=== PATIENT | male | born 1960 | race African-American/Black ===

== ENCOUNTER 2016-10-04 19:04 | Inpatient (IN) | payer OTHER ==
[~2016-10-04] VITALS: Ht 172.7 cm; Wt 130.6 kg
[2016-10-04] MEDS ORDERED: ALBU2.5V13 IH (19:45)
[2016-10-04] MEDS ORDERED: IPRATROPIUM BROMIDE (0.02%) 0.5MG/2.5ML NEB HHN STA (22:06)
[2016-10-04] MEDS ORDERED: ALBUTEROL (0.083%) 2.5MG/3ML NEB HHN STA (22:06)
[2016-10-04] MEDS ORDERED: METHYLPREDNISOLONE SOD SUCC 125 MG/2 ML VIAL IV STA (22:06)
[2016-10-04] MEDS ORDERED: LEVOFLOXACIN 750MG PREMIX 150 ML IV ONE (22:15)
[2016-10-04] MEDS ORDERED: IPRATROPIUM/ALBUTEROL 0.5-3(2.5)MG/3ML NEB ONE (22:29)
[2016-10-04] MEDS ORDERED: ALBUTEROL (0.5%) 2.5MG/0.5ML NEB HHN ONE (22:29)
[2016-10-04 22:32] LABS: HEMOGLOBIN. 12.4 g/dL (14.0-18.0); MEAN CORPUSCULAR HEMOGLOBIN 28.7 pg (28.0-32.0); MEAN CORPUSCULAR HGB CONC 31.8 g/dL (31.0-37.0); MEAN CORPUSCULAR VOLUME 90.3 fL (80.0-94.0); PLATELET 191 x1000/uL (130-400); RED BLOOD CELL COUNT 4.32 mill/uL (4.7-6.1); RED CELL DISTRIBUTION WIDTH 14.4 % (11.6-14.6)
[2016-10-04 22:33] LABS: DIFFERENTIAL COMMENT 1
[2016-10-04 22:35] LABS: CHLORIDE 108 mEq/L (98-107); INDEX HEMOLYSI 1 (1-3); INDEX ICTERIC 1 (1-4); INDEX LIPEMIC 1 (1-3)
[2016-10-04 22:38] LABS: D-DIMER 0.28 mg/L FEU (<0.50); PROTHROMBIN TIME 10.2 sec
[2016-10-04 22:40] LABS: ALANINE AMINOTRANSFERASE 29 IU/L (13-61); ALBUMIN 3.4 g/dL (3.4-5.0); ANION GAP 13; CALCIUM 8.7 mg/dL (8.5-10.1); CARBON DIOXIDE 25 mEq/L (21-32); LIPASE 89 IU/L (73-393); UREA NITROGEN BLOOD 22 mg/dL (7-21)
[2016-10-04 22:42] LABS: eGFR 59 mL/min (>60)
[2016-10-04 22:46] LABS: CREATINE KINASE 264 IU/L (39-308); NT PRO B-TYPE NATRIURETIC PEP 373 pg/mL (5-125); PLATELET ESTIMATE NORMAL; TROPONIN I 0.02 ng/mL (0.00-0.04)
[2016-10-04 22:48] LABS: BG BASE EXCESS -0.7 mmol/L (-2.0-2.0); BG CARBOXYHEMOGLOBIN 1.3 % (0.5-1.5); BG DEOXYHEMOGLOBIN 18.1 % (0.0-5.0); BG FRACTION INSPIRED OXYGEN 21; BG HCO3 ACT 25.1 mmol/L (22.0-26.0); BG OXYGEN SATURATION 81.7 % (92.0-98.5); BG OXYHEMOGLOBIN 80.6 % (94.0-97.0); BG PCO2 45.7 mmHg (35.0-45.0); BG PH 7.357 (7.350-7.450); BG PO2 46.6 mmHg (75.0-100.0); BG SAMPLE SITE RIGHT RADIAL; BG TOTAL HEMOGLOBIN 13.5 g/dL (12.0-18.0); BG VENT MODE ROOM AIR
[2016-10-04 22:51] LABS: THYROID STIMULATING HORMONE 0.31 uIU/mL (0.36-3.74)
[2016-10-05 00:41] LABS: CLARITY URINE CLEAR (CLEAR); COLOR URINE YELLOW (YELLOW); GLUCOSE URINE NEGATIVE (NEGATIVE); KETONES URINE NEGATIVE (NEGATIVE); LEUKOCYTE ESTERASE URINE NEGATIVE (NEGATIVE); NITRITE URINE NEGATIVE (NEGATIVE); OCCULT BLOOD URINE NEGATIVE (NEGATIVE); PROTEIN URINE 1+ (NEGATIVE); SPECIFIC GRAVITY URINE 1.021 (1.005-1.030)
[2016-10-05 00:46] LABS: BACTERIA URINE NONE SEEN; CALCIUM PHOSPHATE CRYSTALS UR NONE SEEN /lpf; RBC URINE 0-2 /hpf (0-2); SQUAMOUS EPITHELIAL CELL URINE NONE SEEN /lpf (RARE/1+); WAXY CASTS URINE NONE SEEN /lpf; WBC URINE NONE SEEN /hpf (0-2); YEAST URINE NONE SEEN
[2016-10-05] MEDS ORDERED: METHYLPREDNISOLONE SOD SUCC 125 MG/2 ML VIAL IV NR (02:30)
[2016-10-05 04:30] VITALS: BP 118/84
[2016-10-05 04:50] VITALS: BP 118/84
[2016-10-05] MEDS ORDERED: ALBU18HF2 IH (06:08)
[2016-10-05] MEDS ORDERED: FLUT1DIS IH (06:08)
[2016-10-05] MEDS ORDERED: ISOS30TA6 PO (06:08)
[2016-10-05] MEDS ORDERED: ASPI-1035 PO (06:08)
[2016-10-05] MEDS ORDERED: AMLO10TA80 PO (06:08)
[2016-10-05] MEDS ORDERED: FURO40TA5 PO (06:08)
[2016-10-05] MEDS ORDERED: P20 PO (06:08)
[2016-10-05] MEDS ORDERED: MONT10TA24 PO (06:08)
[2016-10-05] MEDS ORDERED: ACETAMINOPHEN 325MG TABLET PO PRN ×2 (06:30→11:15)
[2016-10-05 08:00] VITALS: BP 133/77
[2016-10-05] MEDS: IPRATROPIUM/ALBUTEROL 0.5-3(2.5)MG/3ML NEB HHN PRN ×3 (08:03→16:59)
[2016-10-05] MEDS: METHYLPREDNISOLONE SOD SUCC 40 MG/ML VIAL IV SCH ×2 (08:08→21:41)
[2016-10-05] MEDS: ENOXAPARIN 40MG/0.4ML SYR SUBCUT SCH (09:49)
[2016-10-05] MEDS: OMEPRAZOLE 20MG CAPSULE EXTENDED RELEASE PO SCH (09:49)
[2016-10-05] MEDS: LEVOFLOXACIN 500MG TABLET PO SCH (11:59)
[2016-10-05 12:00] VITALS: BP 140/88
[2016-10-05 16:00] VITALS: BP 148/96
[2016-10-05] MEDS ORDERED: IPRATROPIUM/ALBUTEROL 0.5-3(2.5)MG/3ML NEB HHN SCH (18:30)
[2016-10-05] MEDS: HYDROCODONE/ACETAMINOPHEN 5/325MG TABLET PO PRN (19:47)
[2016-10-05] MEDS: IPRATROPIUM/ALBUTEROL 0.5-3(2.5)MG/3ML NEB HHN SCH ×2 (20:46→23:50)
[2016-10-06] MEDS: IPRATROPIUM/ALBUTEROL 0.5-3(2.5)MG/3ML NEB HHN SCH ×5 (03:52→20:19)
[2016-10-06 04:12] VITALS: BP 117/96
[2016-10-06 06:03] LABS: HEMATOCRIT. 39.6 % (42.0-52.0); HEMOGLOBIN. 12.4 g/dL (14.0-18.0); MEAN CORPUSCULAR HEMOGLOBIN 28.4 pg (28.0-32.0); MEAN CORPUSCULAR HGB CONC 31.4 g/dL (31.0-37.0); MEAN CORPUSCULAR VOLUME 90.5 fL (80.0-94.0); MEAN PLATELET VOLUME 10.7 fl (7.4-10.4); PLATELET 209 x1000/uL (130-400); RED BLOOD CELL COUNT 4.37 mill/uL (4.7-6.1); RED CELL DISTRIBUTION WIDTH 14.4 % (11.6-14.6); WHITE BLOOD COUNT 19.5 x1000/uL (4.5-11.0)
[2016-10-06 06:13] LABS: DIFFERENTIAL COMMENT 1
[2016-10-06 06:46] LABS: ANION GAP 12; CALCIUM 8.9 mg/dL (8.5-10.1); CARBON DIOXIDE 28 mEq/L (21-32); CHLORIDE 102 mEq/L (98-107); INDEX HEMOLYSI 2 (1-3); INDEX ICTERIC 1 (1-4); INDEX LIPEMIC 1 (1-3); UREA NITROGEN BLOOD 20 mg/dL (7-21); eGFR > 60 mL/min (>60)
[2016-10-06 08:00] VITALS: BP 123/84
[2016-10-06] MEDS: OMEPRAZOLE 20MG CAPSULE EXTENDED RELEASE PO SCH (08:29)
[2016-10-06] MEDS: METHYLPREDNISOLONE SOD SUCC 40 MG/ML VIAL IV SCH ×2 (08:30→20:32)
[2016-10-06] MEDS: ENOXAPARIN 40MG/0.4ML SYR SUBCUT SCH (08:30)
[2016-10-06 09:02] LABS: BG BASE EXCESS -0.3 mmol/L (-2.0-2.0); BG CARBOXYHEMOGLOBIN 0.8 % (0.5-1.5); BG DEOXYHEMOGLOBIN 4.5 % (0.0-5.0); BG FRACTION INSPIRED OXYGEN 28; BG HCO3 ACT 24.9 mmol/L (22.0-26.0); BG METHEMOGLOBIN 0.3 % (0.0-1.5); BG OXYGEN SATURATION 95.4 % (92.0-98.5); BG OXYHEMOGLOBIN 94.4 % (94.0-97.0); BG PCO2 43.1 mmHg (35.0-45.0); BG PO2 75.7 mmHg (75.0-100.0); BG SAMPLE SITE RIGHT RADIAL; BG TOTAL HEMOGLOBIN 13.7 g/dL (12.0-18.0); BG VENT MODE NASAL CANNULA
[2016-10-06 11:15] LABS: PLATELET ESTIMATE NORMAL
[2016-10-06] MEDS: LEVOFLOXACIN 500MG TABLET PO SCH (11:31)
[2016-10-06] MEDS: HYDROCODONE/ACETAMINOPHEN 5/325MG TABLET PO PRN (11:32)
[2016-10-06 11:55] VITALS: BP 116/88
[2016-10-06 15:38] VITALS: BP 105/87
[2016-10-06 20:00] VITALS: BP 129/85
[2016-10-06] MEDS: ENOXAPARIN 30MG/0.3ML SYR SUBCUT SCH (20:33)
[2016-10-07] VITALS: BP 118/83
[2016-10-07] MEDS: IPRATROPIUM/ALBUTEROL 0.5-3(2.5)MG/3ML NEB HHN SCH ×4 (00:23→11:50)
[2016-10-07 04:00] VITALS: BP 136/83
[2016-10-07] MEDS: OMEPRAZOLE 20MG CAPSULE EXTENDED RELEASE PO SCH (06:00)
[2016-10-07 08:00] VITALS: BP 141/87
[2016-10-07 08:27] LABS: DIFFERENTIAL COMMENT 1; HEMATOCRIT. 40.7 % (42.0-52.0); HEMOGLOBIN. 12.7 g/dL (14.0-18.0); MEAN CORPUSCULAR HEMOGLOBIN 28.7 pg (28.0-32.0); MEAN CORPUSCULAR HGB CONC 31.3 g/dL (31.0-37.0); MEAN CORPUSCULAR VOLUME 91.6 fL (80.0-94.0); MEAN PLATELET VOLUME 9.6 fl (7.4-10.4); PLATELET 191 x1000/uL (130-400); RED BLOOD CELL COUNT 4.44 mill/uL (4.7-6.1); RED CELL DISTRIBUTION WIDTH 14.3 % (11.6-14.6); WHITE BLOOD COUNT 15.8 x1000/uL (4.5-11.0)
[2016-10-07] MEDS: ENOXAPARIN 30MG/0.3ML SYR SUBCUT SCH (09:40)
[2016-10-07] MEDS: METHYLPREDNISOLONE SOD SUCC 40 MG/ML VIAL IV SCH (09:40)
[2016-10-07 12:00] VITALS: BP 148/97
[2016-10-07 12:58] LABS: PLATELET ESTIMATE NORMAL
== END 2016-10-07 14:15 | disposition home or self-care (01) | DRG 140 ==
LOC: ER 21:03 → 6WST 10-05 00:22 → OBSVTOIN 10-05 00:22 → INTOOBSV 10-05 00:22 → 6WST 10-05 17:27
PROVIDERS: ADMIT Internal Medicine; ATTEND Internal Medicine
DX: J44.1 Chronic obstructive pulmonary disease with (acute) exacerbation (principal); I10 Essential (primary) hypertension; N28.9 Disorder of kidney and ureter, unspecified; D72.829 Elevated white blood cell count, unspecified; R09.02 Hypoxemia; R60.0 Localized edema
CPT/HCPCS: 36415; 36600; 71010; 71250; 73560; 80048; 80053; 81001; 82375; 82550; 82805; 82962; 83605; 83690; 83880; 84443; 84484; 85025; 85379; 85610; 87040; 93005; 93306; 93970; 96365; 96366; 96375; 99285; J1650; J1956; J2920; J2930; J7040; J7611; J7620

== ENCOUNTER 2018-04-30 07:02 | Inpatient (IN) | payer OTHER ==
[~2018-04-30] VITALS: Ht 170.2 cm; Wt 130.6 kg
[~2018-04-30 07:02] MED LIST: ALBU18HF2 IH; ALBU2.5V13 IH; AMLO10TA80 PO; ASPI-1159 PO; FLUT1DIS IH; FURO40TA5 PO; ISOS30TA6 PO; MONT10TA24 PO; P20 PO
[2018-04-30 08:44] LABS: BASOPHILS % 0.3 % (0.0-2.0); EOSINOPHILS % 1.6 % (0.0-5.0); HEMATOCRIT. 41.1 % (42.0-52.0); HEMOGLOBIN. 13.2 g/dL (14.0-18.0); LYMPHOCYTES % 14.4 % (20.0-50.0); MEAN CORPUSCULAR VOLUME 90.2 fL (80.0-94.0); MEAN PLATELET VOLUME 10.6 fl (7.4-10.4); MONOCYTES % 8.3 % (2.0-8.0); NEUTROPHILS % 75.4 % (40.0-76.0); PLATELET 157 x1000/uL (130-400); RED BLOOD CELL COUNT 4.56 mill/uL (4.7-6.1); RED CELL DISTRIBUTION WIDTH 14.7 % (11.6-14.6)
[2018-04-30 08:55] LABS: CHLORIDE 108 mEq/L (98-107)
[2018-04-30] MEDS ORDERED: NA PHOS,M-B/NA PHOS,DI-BA ENEMA 118ML PR PRN (11:15)
[2018-04-30] MEDS ORDERED: ACETAMINOPHEN 650MG SUPP PR PRN (11:15)
[2018-04-30] MEDS ORDERED: IPRATROPIUM/ALBUTEROL 0.5-3(2.5)MG/3ML NEB INH PRN (11:15)
[2018-04-30] MEDS ORDERED: ACETAMINOPHEN 325MG TABLET PO PRN (11:15)
[2018-04-30] MEDS ORDERED: DIPHENHYDRAMINE 50MG/ML VIAL IV PRN (11:15)
[2018-04-30] MEDS ORDERED: AMLODIPINE 5MG TABLET PO SCH (11:15)
[2018-04-30] MEDS ORDERED: ONDANSETRON HCL 4MG/2ML INJ IV PRN (11:15)
[2018-04-30] MEDS ORDERED: MAGNESIUM/ALUMINUM HYDROXIDE/SIMETHICONE 30ML UDC PO PRN (11:15)
[2018-04-30 12:13] LABS: PROTHROMBIN TIME 10.3 sec (9.1-11.1)
[2018-04-30 15:29] LABS: BG BASE EXCESS 0.7 mmol/L (-2.0-2.0); BG CARBOXYHEMOGLOBIN 2.6 % (0.5-1.5); BG DEOXYHEMOGLOBIN 5.1 % (0.0-5.0); BG FRACTION INSPIRED OXYGEN 21; BG METHEMOGLOBIN 0.2 % (0.0-1.5); BG OXYGEN SATURATION 94.8 % (92.0-98.5); BG OXYHEMOGLOBIN 92.1 % (94.0-97.0); BG PCO2 39.3 mmHg (35.0-45.0); BG PH 7.422 (7.350-7.450); BG PO2 68.6 mmHg (75.0-100.0); BG SAMPLE SITE LEFT RADIAL; BG TOTAL HEMOGLOBIN 14.1 g/dL (12.0-18.0); BG VENT MODE ROOM AIR
[2018-04-30 16:00] VITALS: BP 158/89
[2018-04-30] MEDS: NICOTINE 14MG PATCH TD SCH (17:15)
[2018-04-30] MEDS: ASPIRIN 81MG EC TABLET PO SCH (17:15)
[2018-04-30] MEDS: HYDROCODONE/ACETAMINOPHEN 5/325MG TABLET PO PRN (17:15)
[2018-04-30 17:25] VITALS: BP 158/89
[2018-04-30 19:40] VITALS: BP 142/92
[2018-04-30] MEDS: PREDNISONE 20MG TABLET PO SCH (20:45)
[2018-04-30] MEDS ORDERED: PREDNISONE 20MG TABLET PO SCH (20:45)
[2018-05-01 00:49] VITALS: BP 110/74
[2018-05-01] MEDS: IPRATROPIUM/ALBUTEROL 0.5-3(2.5)MG/3ML NEB HHN SCH ×6 (01:15→22:09)
[2018-05-01 01:32] LABS: CREATINE KINASE 130 IU/L (39-308); CREATINE KINASE MB FRACTION 1.3 ng/mL (0.5-3.6)
[2018-05-01 04:45] VITALS: BP 121/93
[2018-05-01 07:35] LABS: HEMATOCRIT. 43.9 % (42.0-52.0); HEMOGLOBIN. 13.8 g/dL (14.0-18.0); MEAN CORPUSCULAR HEMOGLOBIN 28.6 pg (28.0-32.0); MEAN CORPUSCULAR VOLUME 90.8 fL (80.0-94.0); MEAN PLATELET VOLUME 10.7 fl (7.4-10.4); PLATELET 145 x1000/uL (130-400); RED BLOOD CELL COUNT 4.83 mill/uL (4.7-6.1); RED CELL DISTRIBUTION WIDTH 14.6 % (11.6-14.6)
[2018-05-01 07:36] LABS: CHLORIDE 109 mEq/L (98-107)
[2018-05-01 07:58] LABS: HDL CHOLESTEROL 61 mg/dL (40-59); LDL CHOLESTEROL 66 mg/dL (5-100); T4 FREE 1.01 ng/dL (0.76-1.46)
[2018-05-01 08:00] VITALS: BP 153/79
[2018-05-01] MEDS: NICOTINE 14MG PATCH TD SCH (08:32)
[2018-05-01] MEDS: ASPIRIN 81MG EC TABLET PO SCH (08:33)
[2018-05-01] MEDS: HYDROCODONE/ACETAMINOPHEN 5/325MG TABLET PO PRN ×2 (08:34→20:07)
[2018-05-01] MEDS ORDERED: AMLODIPINE 5MG TABLET PO SCH (09:00)
[2018-05-01] MEDS ORDERED: ASPIRIN 81MG EC TABLET PO SCH (09:00)
[2018-05-01 11:35] VITALS: BP_SYST 125; BP_SYST 137; BP_SYST 152; BP_DIAS 0; BP_DIAS 73; BP_DIAS 87
[2018-05-01 12:34] LABS: PLATELET ESTIMATE NORMAL
[2018-05-01] MEDS ORDERED: FUROSEMIDE 40MG/4ML VIAL IVP SCH (12:45)
[2018-05-01] MEDS ORDERED: ACETYLCYSTEINE 200MG/ML 20% VIAL 4ML INH SCH (14:15)
[2018-05-01] MEDS ORDERED: SODIUM CHLORIDE 0.45% 1,000 ML IV SCH (14:30)
[2018-05-01 16:00] VITALS: BP 146/81
[2018-05-01 17:19] LABS: CLARITY URINE CLEAR (CLEAR); COLOR URINE YELLOW (YELLOW); KETONES URINE NEGATIVE (NEGATIVE); LEUKOCYTE ESTERASE URINE NEGATIVE (NEGATIVE); NITRITE URINE NEGATIVE (NEGATIVE); OCCULT BLOOD URINE NEGATIVE (NEGATIVE); PH URINE 5.5 (4.5-8.0); PROTEIN URINE 1+ (NEGATIVE); SPECIFIC GRAVITY URINE 1.007 (1.005-1.030)
[2018-05-01 17:54] LABS: *AMPHETAMINES SCREEN URINE NEGATIVE (NEGATIVE); *BARBITURATES SCREEN URINE NEGATIVE (NEGATIVE); *BENZODIAZEPINES SCREEN URINE NEGATIVE (NEGATIVE); *COCAINE SCREEN URINE PRESUMTIVE POSITIVE (NEGATIVE); CANNABINOID URINE SCREEN NEGATIVE (NEGATIVE); METHADONE URINE SCREEN NEGATIVE (NEGATIVE); OPIATES URINE SCREEN NEGATIVE (NEGATIVE); PHENCYCLIDINE URINE SCREEN NEGATIVE (NEGATIVE)
[2018-05-01 18:04] LABS: *AMPHETAMINES SCREEN URINE NEGATIVE (NEGATIVE); *BARBITURATES SCREEN URINE NEGATIVE (NEGATIVE); *BENZODIAZEPINES SCREEN URINE NEGATIVE (NEGATIVE); *COCAINE SCREEN URINE PRESUMTIVE POSITIVE (NEGATIVE); CANNABINOID URINE SCREEN NEGATIVE (NEGATIVE); METHADONE URINE SCREEN NEGATIVE (NEGATIVE); OPIATES URINE SCREEN NEGATIVE (NEGATIVE); PHENCYCLIDINE URINE SCREEN NEGATIVE (NEGATIVE)
[2018-05-01 20:00] VITALS: BP 143/79
[2018-05-01] MEDS: PREDNISONE 20MG TABLET PO SCH (20:06)
[2018-05-02] VITALS: BP 122/65
[2018-05-02 00:03] VITALS: BP_SYST 132; BP_SYST 141; BP_DIAS 84; BP_DIAS 89
[2018-05-02 01:05] VITALS: BP 122/65
[2018-05-02] MEDS: HYDROCODONE/ACETAMINOPHEN 5/325MG TABLET PO PRN (02:28)
== END 2018-05-02 03:37 | disposition short-term general hospital (02) | DRG 194 ==
LOC: ER 07:24 → 5WST 09:20 → EDBEDREQTM 09:23 → EDBEDREQ 09:23 → ENRESERV 14:25 → CANRESERV 15:17 → ENRESERV 15:17
PROVIDERS: ADMIT Internal Medicine; ATTEND Internal Medicine
DX: I50.43 Acute on chronic combined systolic (congestive) and diastolic (congestive) heart failure (principal); N17.9 Acute kidney failure, unspecified; I24.9 Acute ischemic heart disease, unspecified; I27.20 Pulmonary hypertension, unspecified; J44.1 Chronic obstructive pulmonary disease with (acute) exacerbation; I11.0 Hypertensive heart disease with heart failure; R00.1 Bradycardia, unspecified; R20.2 Paresthesia of skin; E78.5 Hyperlipidemia, unspecified; D64.9 Anemia, unspecified; E66.09 Other obesity due to excess calories; F17.210 Nicotine dependence, cigarettes, uncomplicated; I87.8 Other specified disorders of veins; E80.6 Other disorders of bilirubin metabolism; Z68.39 Body mass index [BMI] 39.0-39.9, adult; Z79.82 Long term (current) use of aspirin; Z79.899 Other long term (current) drug therapy; Z71.6 Tobacco abuse counseling
CPT/HCPCS: 36415; 36600; 71045; 76700; 80061; 80305; 82375; 82550; 82553; 82805; 83735; 83880; 84439; 84443; 84484; 93005; 93923; 93970; 93971; 94618; 94640; 99285; 99406; J1940; J7512; J7620

== ENCOUNTER 2019-06-08 10:26 | Inpatient (IN) | payer MEDICAID, OTHER ==
[~2019-06-08] VITALS: Ht 172.7 cm; Wt 174.2 kg
[~2019-06-08 10:26] MED LIST changes: -ASPI-1159 PO; +ASPI-1393 PO
[2019-06-08] MEDS ORDERED: IPRATROPIUM BROMIDE (0.02%) 0.5MG/2.5ML NEB HHN STA (10:43)
[2019-06-08] MEDS ORDERED: METHYLPREDNISOLONE SOD SUCC 125 MG/2 ML VIAL IV STA (10:43)
[2019-06-08] MEDS ORDERED: MAGNESIUM 2 G PREMIX 50 ML IV ONE (10:45)
[2019-06-08] MEDS ORDERED: NITROGLYCERIN OINT 1GM/INCH UDPKT TD ONE (10:45)
[2019-06-08] MEDS: ALBUTEROL (0.083%) 2.5MG/3ML NEB HHN SCH ×3 (11:05→12:02)
[2019-06-08 11:59] LABS: BASOPHILS % 0.3 % (0.0-2.0); EOSINOPHILS % 0.6 % (0.0-5.0); HEMATOCRIT. 38.8 % (42.0-52.0); HEMOGLOBIN. 12.2 g/dL (14.0-18.0); MEAN PLATELET VOLUME 10.2 fl (7.4-10.4); MONOCYTES % 6.2 % (2.0-8.0); NEUTROPHILS % 82.9 % (40.0-76.0); PLATELET 184 x1000/uL (130-400); RED BLOOD CELL COUNT 4.22 mill/uL (4.7-6.1); RED CELL DISTRIBUTION WIDTH 15.9 % (11.6-14.6)
[2019-06-08 12:05] LABS: CHLORIDE 111 mEq/L (98-107)
[2019-06-08 12:06] LABS: PROTHROMBIN TIME 9.8 sec (9.6-11.0)
[2019-06-08 12:32] LABS: BG BASE EXCESS -3.6 mmol/L (-2.0-2.0); BG FRACTION INSPIRED OXYGEN 28; BG HCO3 ACT 24.3 mmol/L (22.0-26.0); BG METHEMOGLOBIN 0.2 % (0.0-1.5); BG OXYGEN SATURATION 92.6 % (92.0-98.5); BG OXYHEMOGLOBIN 87.8 % (94.0-97.0); BG PCO2 56.1 mmHg (35.0-45.0); BG PH 7.255 (7.350-7.450); BG PO2 70.9 mmHg (75.0-100.0); BG SAMPLE SITE RIGHT RADIAL; BG TOTAL HEMOGLOBIN 13.5 g/dL (12.0-18.0); BG VENT MODE ROOM AIR
[2019-06-08] MEDS ORDERED: SODIUM CHLORIDE 0.9% 1,000 ML IV ONE (14:18)
[2019-06-08] MEDS ORDERED: PIPERACILLIN/TAZ 3.375G PREMIX 50 ML IV ONE (14:30)
[2019-06-08] MEDS ORDERED: ONDANSETRON HCL 4MG/2ML INJ IV PRN (16:45)
[2019-06-08] MEDS ORDERED: ACETAMINOPHEN 650MG SUPP PR PRN (16:45)
[2019-06-08] MEDS ORDERED: ACETAMINOPHEN 650MG/20.3ML UDC GT PRN (16:45)
[2019-06-08] MEDS ORDERED: MAGNESIUM/ALUMINUM HYDROXIDE/SIMETHICONE 30ML UDC PO PRN (16:45)
[2019-06-08] MEDS ORDERED: HYDROCODONE/ACETAMINOPHEN 5/325MG TABLET PO PRN (16:45)
[2019-06-08] MEDS ORDERED: GUAIFENESIN 200MG/10ML SUGAR FREE UDC PO PRN (16:45)
[2019-06-08] MEDS ORDERED: DOCUSATE SODIUM 100MG CAPSULE PO PRN (16:45)
[2019-06-08] MEDS ORDERED: DIPHENHYDRAMINE 50MG/ML VIAL IV PRN (16:45)
[2019-06-08] MEDS ORDERED: ACETAMINOPHEN 325MG TABLET PO PRN (16:45)
[2019-06-08] MEDS ORDERED: NA PHOS,M-B/NA PHOS,DI-BA ENEMA 118ML PR PRN (16:45)
[2019-06-08] MEDS ORDERED: IPRATROPIUM/ALBUTEROL 0.5-3(2.5)MG/3ML NEB HHN PRN (16:45)
[2019-06-08 21:49] VITALS: BP 121/76
[2019-06-08] MEDS: SODIUM CHLORIDE 0.9% INJ 3ML FLUSH IVF SCH (22:38)
[2019-06-08] MEDS: METHYLPREDNISOLONE SOD SUCC 125 MG/2 ML VIAL IV SCH (22:38)
[2019-06-09] VITALS (13 sets, daily range): BP systolic 95–180; BP diastolic 32–96
[2019-06-09 01:14] LABS: CREATINE KINASE 218 IU/L (39-308)
[2019-06-09 01:15] LABS: CREATINE KINASE MB FRACTION 2.4 ng/mL (0.5-3.6)
[2019-06-09] MEDS: IPRATROPIUM/ALBUTEROL 0.5-3(2.5)MG/3ML NEB HHN SCH ×4 (01:43→21:25)
[2019-06-09] MEDS: METHYLPREDNISOLONE SOD SUCC 125 MG/2 ML VIAL IV SCH ×4 (04:57→21:27)
[2019-06-09] MEDS: SODIUM CHLORIDE 0.9% INJ 3ML FLUSH IVF SCH ×3 (06:32→21:32)
[2019-06-09 06:57] LABS: HEMATOCRIT. 40.9 % (42.0-52.0); HEMOGLOBIN. 12.6 g/dL (14.0-18.0); MEAN CORPUSCULAR HEMOGLOBIN 29.1 pg (28.0-32.0); MEAN CORPUSCULAR VOLUME 94.1 fL (80.0-94.0); MEAN PLATELET VOLUME 10.2 fl (7.4-10.4); PLATELET 158 x1000/uL (130-400); RED BLOOD CELL COUNT 4.34 mill/uL (4.7-6.1)
[2019-06-09 07:16] LABS: CHLORIDE 110 mEq/L (98-107)
[2019-06-09 07:23] LABS: LDL CHOLESTEROL 51 mg/dL (5-100)
[2019-06-09 07:24] LABS: CREATINE KINASE 235 IU/L (39-308); HDL CHOLESTEROL 73 mg/dL (40-59)
[2019-06-09 07:27] LABS: CREATINE KINASE MB FRACTION 2.3 ng/mL (0.5-3.6)
[2019-06-09] MEDS: ENOXAPARIN 40MG/0.4ML SYR SUBCUT SCH ×2 (09:52→21:27)
[2019-06-09 11:09] LABS: CLARITY URINE CLEAR (CLEAR); COLOR URINE YELLOW (YELLOW); KETONES URINE TRACE (NEGATIVE); LEUKOCYTE ESTERASE URINE NEGATIVE (NEGATIVE); NITRITE URINE NEGATIVE (NEGATIVE); OCCULT BLOOD URINE NEGATIVE (NEGATIVE); PROTEIN URINE 2+ (NEGATIVE); SPECIFIC GRAVITY URINE 1.019 (1.005-1.030); UROBILINOGEN URINE 0.2 E.U./dL (0.2-1.0)
[2019-06-09 11:26] LABS: CANNABINOID URINE SCREEN NEGATIVE (NEGATIVE)
[2019-06-09 11:27] LABS: *BARBITURATES SCREEN URINE NEGATIVE (NEGATIVE)
[2019-06-09 11:28] LABS: *AMPHETAMINES SCREEN URINE NEGATIVE (NEGATIVE); *BENZODIAZEPINES SCREEN URINE NEGATIVE (NEGATIVE); *COCAINE SCREEN URINE PRESUMTIVE POSITIVE (NEGATIVE); METHADONE URINE SCREEN NEGATIVE (NEGATIVE); OPIATES URINE SCREEN PRESUMTIVE POSITIVE (NEGATIVE); PHENCYCLIDINE URINE SCREEN NEGATIVE (NEGATIVE)
[2019-06-09 20:49] LABS: PLATELET ESTIMATE NORMAL
[2019-06-09] MEDS: CLONIDINE 0.1MG TABLET PO PRN (21:28)
[2019-06-10] VITALS (10 sets, daily range): BP systolic 124–163; BP diastolic 60–106
[2019-06-10] MEDS: IPRATROPIUM/ALBUTEROL 0.5-3(2.5)MG/3ML NEB HHN SCH ×4 (02:25→21:34)
[2019-06-10] MEDS: METHYLPREDNISOLONE SOD SUCC 125 MG/2 ML VIAL IV SCH ×3 (04:00→15:36)
[2019-06-10] MEDS: SODIUM CHLORIDE 0.9% INJ 3ML FLUSH IVF SCH ×3 (05:10→22:56)
[2019-06-10] MEDS: ENOXAPARIN 40MG/0.4ML SYR SUBCUT SCH ×2 (08:11→22:56)
[2019-06-10 16:27] LABS: HEMATOCRIT. 39.5 % (42.0-52.0); HEMOGLOBIN. 12.3 g/dL (14.0-18.0); MEAN CORPUSCULAR HEMOGLOBIN 28.9 pg (28.0-32.0); MEAN CORPUSCULAR VOLUME 92.5 fL (80.0-94.0); PLATELET 149 x1000/uL (130-400); RED BLOOD CELL COUNT 4.26 mill/uL (4.7-6.1)
[2019-06-10 16:31] LABS: CHLORIDE 106 mEq/L (98-107)
[2019-06-10 16:43] LABS: PLATELET ESTIMATE NORMAL
[2019-06-10] MEDS: FUROSEMIDE 40MG/4ML VIAL IVP SCH (17:56)
[2019-06-10] MEDS: METHYLPREDNISOLONE SOD SUCC 40 MG/ML VIAL IV SCH (22:56)
[2019-06-11] VITALS (10 sets, daily range): BP systolic 140–162; BP diastolic 78–107
[2019-06-11] MEDS: CLONIDINE 0.1MG TABLET PO PRN (01:31)
[2019-06-11] MEDS: IPRATROPIUM/ALBUTEROL 0.5-3(2.5)MG/3ML NEB HHN SCH ×4 (03:14→21:01)
[2019-06-11] MEDS: SODIUM CHLORIDE 0.9% INJ 3ML FLUSH IVF SCH ×3 (07:07→22:49)
[2019-06-11] MEDS: METHYLPREDNISOLONE SOD SUCC 40 MG/ML VIAL IV SCH ×2 (07:07→14:00)
[2019-06-11] MEDS: FUROSEMIDE 40MG/4ML VIAL IVP SCH (09:00)
[2019-06-11 10:39] LABS: BG BASE EXCESS 1.6 mmol/L (-2.0-2.0); BG BILEVEL POS AIRWAY PRESSURE 15/5; BG CARBOXYHEMOGLOBIN 0.7 % (0.5-1.5); BG DEOXYHEMOGLOBIN 2.6 % (0.0-5.0); BG FRACTION INSPIRED OXYGEN 45; BG HCO3 ACT 29.9 mmol/L (22.0-26.0); BG METHEMOGLOBIN 0.3 % (0.0-1.5); BG OXYGEN SATURATION 97.4 % (92.0-98.5); BG OXYHEMOGLOBIN 96.4 % (94.0-97.0); BG PCO2 64.4 mmHg (35.0-45.0); BG PH 7.284 (7.350-7.450); BG PO2 103.6 mmHg (75.0-100.0); BG SAMPLE SITE RIGHT RADIAL; BG TOTAL HEMOGLOBIN 13.5 g/dL (12.0-18.0); BG VENT MODE MASK - BIPAP
[2019-06-11] MEDS: ENOXAPARIN 40MG/0.4ML SYR SUBCUT SCH ×2 (11:56→22:49)
[2019-06-11 14:04] LABS: CHLORIDE 106 mEq/L (98-107)
[2019-06-11 14:47] LABS: HEMATOCRIT. 38.4 % (42.0-52.0); HEMOGLOBIN. 12.2 g/dL (14.0-18.0); MEAN CORPUSCULAR HEMOGLOBIN 29.4 pg (28.0-32.0); MEAN CORPUSCULAR VOLUME 92.5 fL (80.0-94.0); MEAN PLATELET VOLUME 10.2 fl (7.4-10.4); PLATELET 157 x1000/uL (130-400); RED BLOOD CELL COUNT 4.16 mill/uL (4.7-6.1); RED CELL DISTRIBUTION WIDTH 16.1 % (11.6-14.6)
[2019-06-11 20:43] LABS: PLATELET ESTIMATE NORMAL
[2019-06-12] VITALS (15 sets, daily range): BP systolic 116–163; BP diastolic 69–113
[2019-06-12] MEDS: METHYLPREDNISOLONE SOD SUCC 40 MG/ML VIAL IV SCH ×4 (00:11→23:55)
[2019-06-12] MEDS: IPRATROPIUM/ALBUTEROL 0.5-3(2.5)MG/3ML NEB HHN SCH ×4 (01:55→20:38)
[2019-06-12] MEDS: SODIUM CHLORIDE 0.9% INJ 3ML FLUSH IVF SCH ×3 (06:54→23:58)
[2019-06-12] MEDS ORDERED: LIDOCAINE HCL 1% 20ML VIAL (Pyxis) INJ ONE (08:45)
[2019-06-12] MEDS: FUROSEMIDE 40MG/4ML VIAL IVP SCH (10:45)
[2019-06-12] MEDS: ENOXAPARIN 40MG/0.4ML SYR SUBCUT SCH ×2 (10:45→23:55)
[2019-06-13] VITALS (10 sets, daily range): BP systolic 116–170; BP diastolic 72–96
[2019-06-13] MEDS: IPRATROPIUM/ALBUTEROL 0.5-3(2.5)MG/3ML NEB HHN SCH ×3 (02:14→12:49)
[2019-06-13] MEDS: METHYLPREDNISOLONE SOD SUCC 40 MG/ML VIAL IV SCH (07:08)
[2019-06-13] MEDS: SODIUM CHLORIDE 0.9% INJ 3ML FLUSH IVF SCH (07:10)
[2019-06-13 08:02] LABS: HEMATOCRIT 40.5 % (42.0-52.0); HEMOGLOBIN 12.8 g/dL (14.0-18.0); MEAN CORPUSCULAR HEMOGLOBIN 29.1 pg (28.0-32.0); PLATELET 151 x1000/uL (130-400); RED CELL DISTRIBUTION WIDTH 15.7 % (11.6-14.6)
[2019-06-13 08:37] LABS: CHLORIDE 104 mEq/L (98-107)
[2019-06-13] MEDS ORDERED: P20 PO (08:44)
[2019-06-13] MEDS ORDERED: ALBU18HF2 IH (08:44)
[2019-06-13] MEDS ORDERED: ISOS30TA6 PO (08:44)
[2019-06-13] MEDS ORDERED: ASPI-1393 PO (08:44)
[2019-06-13] MEDS ORDERED: MONT10TA24 PO (08:44)
[2019-06-13] MEDS ORDERED: ALBU2.5V13 IH (08:44)
[2019-06-13] MEDS ORDERED: FURO40TA5 PO (08:44)
[2019-06-13] MEDS ORDERED: AMLO10TA80 PO (08:44)
[2019-06-13] MEDS: ENOXAPARIN 40MG/0.4ML SYR SUBCUT SCH (09:02)
[2019-06-13] MEDS: FUROSEMIDE 40MG/4ML VIAL IVP SCH (09:59)
[2019-06-13] MEDS ORDERED: SODIUM POLYSTYRENE SULFONATE 15 G/60 ML BOT PO NR (11:00)
== END 2019-06-13 15:47 | disposition home or self-care (01) | DRG 816 ==
LOC: ER 10:33 → 3WST 13:27 → EDBEDREQSVC 13:29 → EDBEDREQ 13:29 → ENRESERV 20:16
PROVIDERS: ADMIT Family Medicine; ATTEND Family Medicine
PROC: 5A09357 Assistance with Respiratory Ventilation, Less than 24 Consecutive Hours, Continuous Positive Airway Pressure (ICD-10-PCS; 2019-06-08)
PROC: 5A09357 Assistance with Respiratory Ventilation, Less than 24 Consecutive Hours, Continuous Positive Airway Pressure (ICD-10-PCS; 2019-06-09)
PROC: 5A09357 Assistance with Respiratory Ventilation, Less than 24 Consecutive Hours, Continuous Positive Airway Pressure (ICD-10-PCS; 2019-06-10)
PROC: 5A09357 Assistance with Respiratory Ventilation, Less than 24 Consecutive Hours, Continuous Positive Airway Pressure (ICD-10-PCS; 2019-06-11)
PROC: 05HY33Z Insertion of Infusion Device into Upper Vein, Percutaneous Approach (ICD-10-PCS; principal; 2019-06-12)
PROC: B54MZZA Ultrasonography of Right Upper Extremity Veins, Guidance (ICD-10-PCS; 2019-06-12)
PROC: 5A09357 Assistance with Respiratory Ventilation, Less than 24 Consecutive Hours, Continuous Positive Airway Pressure (ICD-10-PCS; 2019-06-12)
DX: T40.5X1A Poisoning by cocaine, accidental (unintentional), initial encounter (principal); J96.20 Acute and chronic respiratory failure, unspecified whether with hypoxia or hypercapnia; I50.33 Acute on chronic diastolic (congestive) heart failure; E11.22 Type 2 diabetes mellitus with diabetic chronic kidney disease; D64.9 Anemia, unspecified; E66.01 Morbid (severe) obesity due to excess calories; I11.0 Hypertensive heart disease with heart failure; J68.0 Bronchitis and pneumonitis due to chemicals, gases, fumes and vapors; N18.9 Chronic kidney disease, unspecified; G47.33 Obstructive sleep apnea (adult) (pediatric); F17.200 Nicotine dependence, unspecified, uncomplicated; I13.0 Hypertensive heart and chronic kidney disease with heart failure and stage 1 through stage 4 chronic kidney disease, or unspecified chronic kidney disease; T38.0X5A Adverse effect of glucocorticoids and synthetic analogues, initial encounter; Y92.89 Other specified places as the place of occurrence of the external cause; Z79.82 Long term (current) use of aspirin; Z79.899 Other long term (current) drug therapy; Z68.43 Body mass index [BMI] 50.0-59.9, adult
CPT/HCPCS: 36415; 36600; 71045; 76937; 80061; 80305; 81003; 82375; 82550; 82553; 82805; 83605; 83880; 84484; 85027; 93005; 94640; 94660; 97110; 97162; 99291; C1725; J1200; J1650; J1940; J2543; J2920; J2930; J3475; J3490; J7611; J7620